=== PATIENT | female | born 1980 | race Caucasian/White ===

== ENCOUNTER 2022-12-10 09:06 | Outpatient (CLI) | payer OTHER, SELFPAY ==
--- NOTE | 2022-12-10 09:15 | US_ITS ---
WS: [id number] OBSTETRICAL ULTRASOUND COMPLETE HISTORY: dating and survey COMPARISON: None available. Single intrauterine gestation in Cephalic presentation. Cervix is Closed and normal length. Cervical length is 4.5 cm. Normal amount of amniotic fluid surrounds the fetus. Placenta: Anterior, no previa or abruption. Placenta ends 2 cm above the internal cervical os. Place nta grade 1 Heart: 144 BPM. Four chambers are identified. RIGHT and LEFT outflow tracts are unremarkable. Anatomy: Intracranial structures and spine are normal. kidneys, stomach and urinary bladd er are unremarkable. Abdominal wall, three-vessel cord and cord insertion site are normal. 4 extremities are present. profile: Limited by position. Gender: Female measurements: BPD = 5.5 cm = 22w6d; HC = 20.5 cm = 22w4d; AC = 17.7 cm = 22w4d; FL = 4.2 cm = 23w6d; EFW: 562 g. Not available. Biometry is internally concordant. AGA by ultrasound: 23w0d MANASA by ultrasound: 04/08/2023 IMPRESSION: 1. Single intrauterine gestation of 23w0d with an MANASA of 04/08/2023. 2. Poorly visualized profile and lips. Otherwise anatomy is negative.
== END 2022-12-10 09:07 | disposition home or self-care (01) ==
PROVIDERS: PCP Family Medicine; Visit Provider Family Medicine
DX: Z34.92 Encounter for supervision of normal pregnancy, unspecified, second trimester (principal)
CPT/HCPCS: 76805

== ENCOUNTER → 2022-12-18 10:57 | Outpatient (BNVA) | payer OTHER, SELFPAY | PROVIDERS: PCP Family Medicine; Visit Provider Nurse Practitioner Women's Health | DX: Z34.90 Encounter for supervision of normal pregnancy, unspecified, unspecified trimester (principal) | CPT/HCPCS: 80307; 82105; 84315; 84443; 85027; 86592; 86762; 86803; 86850; 86900; 87086; 87340; 87806 ==

== ENCOUNTER → 2022-12-24 14:28 | Outpatient (BNVA) | payer OTHER, SELFPAY | PROVIDERS: PCP Family Medicine; Visit Provider Obstetrics & Gynecology | DX: Z34.90 Encounter for supervision of normal pregnancy, unspecified, unspecified trimester (principal) | CPT/HCPCS: 76815; 84315 ==

== ENCOUNTER → 2023-01-19 08:02 | Outpatient (BNVA) | payer OTHER, SELFPAY | PROVIDERS: PCP Family Medicine; Visit Provider Obstetrics & Gynecology | DX: Z34.90 Encounter for supervision of normal pregnancy, unspecified, unspecified trimester (principal) | CPT/HCPCS: 82950; 84315; 85025 ==

== ENCOUNTER → 2023-03-16 14:04 | Outpatient (BNVA) | payer OTHER, SELFPAY | PROVIDERS: PCP Family Medicine; Visit Provider Obstetrics & Gynecology | DX: Z34.90 Encounter for supervision of normal pregnancy, unspecified, unspecified trimester (principal); Z3A.00 Weeks of gestation of pregnancy not specified | CPT/HCPCS: 84315; 87081 ==

== ENCOUNTER → 2023-03-23 09:59 | Day surgery (SDC) | payer OTHER, SELFPAY ==
--- NOTE | 2023-03-23 10:27 | P.ANESASSM_ITS ---
Pre-Anesthetic Assessment Height/Weight: Height 1.75 m Epidural Familial anesthetic complications: None Social No alcohol and No tobacco Hx of addiction abuse Exam alert, oriented x 3, clear to auscultation bilaterally and regular rate & rhythm Anesthetic Plan ASA status: 2 Anesthesia: Regional (specify below) Risk of > 500 ml blood loss (7ml/kg in children): Yes, adequate IV access and fluids planned Other Pertinent Information patient desires avoiding any narcotic/opioids due to history of narcotic addiction Medications/Allergies Home Medications Medication Instructions Recorded Confirmed Last Taken Type sertraline 25 mg tablet (Zoloft) 25 mg PO DAILY #30 tabs 10/30/22 03/23/23 Unknown Rx buprenorphine HCl 8 mg sublingual 4 mg sublingual DAILY 12/08/22 03/23/23 Unknown History tablet vitamin with calcium 1 tab PO DAILY #30 tabs 12/08/22 03/23/23 Unknown Rx no.72-iron 27 mg-folic acid 1 mg tablet ( Vitamins Plus Low Iron) Allergies Allergy/AdvReac Type Severity Reaction Status Date / Time No Known Allergies Allergy Verified 03/23/23 09:34 [facility] Anesthesia Medical History Depression Surgical History Hx of hernia repair Family History Other CAD (coronary artery disease) Denies family history of Colon cancer Ovarian cancer Diabetes Heart disease Breast cancer Hypertension Uterine cancer Thyroid disease Stroke Social History Smoking and tobacco/nicotine status: never used tobacco/nicotine Alcohol intake: never Substance/Drug Use: former Data Anesthesia Cardiac Studies: No Data to Display
== END ==
PROVIDERS: PCP Family Medicine; Visit Provider Obstetrics & Gynecology
DX: Z01.818 Encounter for other preprocedural examination (principal)
CPT/HCPCS: 81000

== ENCOUNTER 2023-04-02 07:59 | Inpatient (IN) | payer OTHER, SELFPAY ==
[2023-04-02] VITALS (83 sets, daily range): BP systolic 88–144; BP diastolic 52–79; PULSE 65–106; RESP 16; TEMP 36.3–36.4; O2SAT 99–100; BMI 25.2
--- OUTSIDE RECORDS SUMMARY | 2023-04-02 08:21 | XMS_ITS | Continuity of Care Document ---
Author Name Unknown Organization [facility] Address [address] [place] [address]- Care Team Providers Care Cocoa Butter Filter Operator Name Role Phone Gladys MONTANEZ, Harlan Salcido Primary Care Physician Encounter Ordoñez Financial Number [id number] Date(s): 02/27/23 - 02/27/23 [facility] [address] [place], [place] [address] Attending Physician: Juanito Levi MD Admitting Physician: Referring, DR Casarez Allergies, Adverse Reactions, Alerts No Known Allergies Assessment and Plan Future Appointments Appointment Date:03/10/2023 11:45:00 AM Scheduled Provider: Location:Reg Appointment Type:Ultrasound 60 Appointment Date:03/10/2023 01:30:00 PM Scheduled Provider: Location:Reg Appointment Type:New Patient Appointment Date:04/24/2023 11:40:00 AM Scheduled Provider:Josue Singh DO Location: Addictions Appointment Type:DIRECT MAIL CLERK Established Patient Medications buprenorphine 8 mg sublingual tablet 4 mg, = 0.5 tab, SL, Daily, 30 tab, 1, 1, [facility] #[id number], 68, Height (inches) (Clinical), 01/05/23 10:43:00 CDT, in Start Date: 02/27/23 Status: Ordered buprenorphine 8 mg sublingual tablet 8 mg, = 1 tab, SL, Daily, 30, 1 Start Date: 12/11/20 Status: Ordered buprenorphine 8 mg sublingual tablet 8 mg, = 1 tab, SL, Daily, 30 tab, 2, 2, [facility] #[id number], 68, Height (inches) (Clinical), 09/22/22 12:55:00 CDT, in Start Date: 09/22/22 Status: Ordered Pristiq 25 mg, By mouth, Daily, Refill(s) 0 Start Date: 06/30/22 Status: Ordered Suboxone 8 mg-2 mg sublingual film 1 EA, SL, Daily, 28 EA, 2, 2, Substitution Permitted Start Date: 08/20/20 Stop Date: 10/28/20 Status: Ordered Social History Social History Type Response Sex Female Patient Care team information Care Team Personnel Name: Gladys MONTANEZ, Harlan Salcido Position: 2 Restricted Providers Member Role: Primary Care Physician Address: Address: [address] [place] [address] Care Team Related Persons Name: JONATAN DELATORRE Name: MAX KAPADIA Address: home [address] [phone]
[2023-04-02 09:04] LABS: Basophils % 0.3 %; Eosinophils # 0.1 10^3/uL (0.0-0.8); Eosinophils % 0.8 %; Hematocrit 34.5 % (36-47); Lymphocytes # 0.7 10^3/uL (0.8-4.8); Lymphocytes % 11.6 %; Mean Corpuscular HGB Conc 34.5 g/dL (30-55); Mean Corpuscular Hemoglobin 30.3 pg (27-33); Mean Corpuscular Volume 87.8 fl (85-98); Mean Platelet Volume 10.9 fL (7.4-10.4); Monocytes # 0.7 10^3/uL (0.2-0.9); Monocytes % 11.9 %; Neutrophils # 4.54 10^3/uL (1.8-7.7); Neutrophils % 74.3 %; Nucleated Red Blood Cells % 0 %; Platelet Count 182 10^3/cmm (157-399); Red Blood Count 3.93 10^6/uL (3.85-5.65); Red Cell Distribution Width 12.5 % (12.1-15.1); White Blood Count 6.12 10^3/uL (3.29-11.43)
[2023-04-02] MEDS: dextrose 5%-lactated ringers 1,000 ML 125 ML IV ×2 (09:15→16:59)
[2023-04-02] MEDS: oxytocin 30 UNIT/500 ML BAG IV (09:15)
--- NOTE | 2023-04-02 09:35 | P.HP_ITS ---
Providers/Chief Complaint 2 Admitting Physician: Gennaro Hope MD Primary TURBINE MECHANIC: Gennaro Hope MD Primary Care Provider: Harlan Graham MD Chief Complaint: induction of labor HPI TURBINE MECHANIC History of Present Illness 42 y.o. EDC April 08, 2023 At 39 w 1 d Admitted for elective induction of labor No complications No c/o + active movements POBHx: x three, uncomplicated PMHx: h/o narcotic addiction, on buprenorphine 4 mg daily Depression PSHx: hernia Meds: buprenorphine 4 mg daily Sertraline 25 mg daily Present Details : 4 Para: 3 Labs Rubella: Immune RPR: Negative GBS: Negative Medications/Allergies Home Medications Medication Instructions Recorded Confirmed Last Taken Type sertraline 25 mg tablet (Zoloft) 25 mg PO DAILY #30 tabs 10/30/22 03/23/23 Unknown Rx buprenorphine HCl 8 mg sublingual 4 mg sublingual DAILY 12/08/22 03/30/23 04/02/23 05:45 History tablet vitamin with calcium 1 tab PO DAILY #30 tabs 12/08/22 03/30/23 04/02/23 05:45 Rx no.72-iron 27 mg-folic acid 1 mg tablet ( Vitamins Plus Low Iron) Allergies Allergy/AdvReac Type Severity Reaction Status Date / Time No Known Allergies Allergy Verified 03/30/23 14:12 PFSH TURBINE MECHANIC 2 PFSH: Medical History Depression Surgical History Hx of hernia repair Family History Other CAD (coronary artery disease) Denies family history of Colon cancer Ovarian cancer Diabetes Heart disease Breast cancer Hypertension Uterine cancer Thyroid disease Stroke History History History 2 4 Term 3 0 Miscarriages/Ectopic 0 Living Children 3 Care MANASA Calculator 2 Estimated Delivery Date Method Current WG Current Estimate 04/08/23 Manual 39w 3d Vitals/I&O/Wt Last Vital Signs Temp 98.0 F 04/04/23 17:13 Pulse 70 04/04/23 17:13 Resp 15 04/04/23 17:13 BP 117/70 04/04/23 17:13 Pulse Ox 98 04/04/23 17:13 O2 Del Method Room Air 04/04/23 04:25 Physical Exam 2 Narrative: Weight 176 lbs, 5?9? VS normal Comfortable, awake, alert Lungs: clear Cor: RRR Abd: soft, nontender FH 37 cm Cx: 2 / 50% / -3 / posterior / vertex Ext: no edema External monitor: heart tracing good variability, + accelerations Urinary Catheter Management: Delcid: Cath Placed During This Visit: yes, but has since been removed by the nurse Reason for Continuing Indwelling Catheter: Other Urinary Catheter Date of Insertion: 04/02/23 Urinary Catheter Time of Insertion: 20:20 Date Urinary Catheter Removed: 04/03/23 Time Urinary Catheter Discontinued: 08:20 Data 04/04/23 01:45 Results Labs OB ([facility]): 2 Obstetrics US 12/24/22 Blood Type O Positive 04/02/23 Antibody Screen Negative 04/02/23 Hct 30.8 % (36-47) L 04/04/23 Hgb 10.60 g/dL (11.27-16.99) L 04/04/23 Rho(D) Type Rh positive 04/02/23 Plt Count 184 10^3/cmm (157-399) 04/04/23 Hep Bs Antigen Non-reactive (Nonreactive) 12/18/22 Hepatitis C Antibody Non-reactive (Nonreactive) 12/18/22 Rubella IgG Antibody 35.2 IU/mL (0.0-10.0) H 12/18/22 RPR Nonreactive (Nonreactive) 12/18/22 HIV 1&2 Ab & HIV 1 Ag Non-reactive (Non-Reactiv) 12/18/22 TSH 2.12 uIU/mL (0.27-4.20) 12/18/22 Cystic Fibrosis Screen Negative 12/18/22 Glucose 1 Hr 50 gm 85 mg/dL (85-140) 01/19/23 Urine Opiates Screen Negative ng/mL (Negative) 12/18/22 Ur Barbiturates Screen Negative ng/mL (Negative) 12/18/22 Ur Phencyclidine Scrn Negative ng/mL (Negative) 12/18/22 Ur Amphetamines Screen Negative ng/mL (Negative) 12/18/22 U Benzodiazepines Scrn Negative ng/mL (Negative) 12/18/22 Urine Cocaine Screen Negative ng/mL (Negative) 12/18/22 U Marijuana (THC) Screen Negative ng/mL (Negative) 12/18/22 Micro Urine Specimen 12/18/22 A&P Assessment and plan (1) : 39 w 1 d Admit for elective induction of labor Plan start pitocin (2) History of narcotic addiction: h/o opioid use disorder continue buphrenorphine Attestations 2 Medical Necessity Statement*: patient at 39 w 1 d gestation, admitted for elective labor induction Coding Level of Care Code Acute Code for Chg Fwd Diagnoses Z34.90 History of narcotic addiction F11.21 Time Spent (min) 20
--- NOTE | 2023-04-02 13:50 | P.PN_ITS ---
STAFF ANESTHESIOLOGIST Subjective 2 Subjective: Interval history: April 02, 2023, 1350 Fetus reassuring Pitocin at 20 mU Cx: 2 cm / Continue Pitocin Labor: Station: -1 Amniotic Membrane Status: Intact Monitor Mode: External Contraction Pattern: Regular Vitals/I&O/Wt Last Vital Signs Temp 98.0 F 04/04/23 17:13 Pulse 70 04/04/23 17:13 Resp 15 04/04/23 17:13 BP 117/70 04/04/23 17:13 Pulse Ox 98 04/04/23 17:13 O2 Del Method Room Air 04/04/23 04:25 Physical Exam 2 Urinary Catheter Management: Delcid: Cath Placed During This Visit: yes, but has since been removed by the nurse Reason for Continuing Indwelling Catheter: Other Urinary Catheter Date of Insertion: 04/02/23 Urinary Catheter Time of Insertion: 20:20 Date Urinary Catheter Removed: 04/03/23 Time Urinary Catheter Discontinued: 08:20 Data 04/04/23 01:45 Attestations 2 Medical Necessity Statement*: patient at 39 w 1 d, admitted for labor induction Coding Level of Care Code Acute Code for Chg Fwd Time Spent (min) 20
[2023-04-02] MEDS: lactated ringers 1,000 ML 999 ML IV ×2 (19:30→20:40)
[2023-04-02] MEDS: ROPivacaine syringe 100 MG/50 ML SYRINGE 10 MG EPIDURAL ×2 (19:45→23:28)
--- NOTE | 2023-04-02 19:48 | P.ANESASSM_ITS ---
Pre-Anesthetic Assessment Height/Weight: Height 1.75 m Weight 77.564 kg Temp Pulse Resp BP Pulse Ox O2 Del Method 97.3 F L 89 16 138/63 100 Room Air 04/02/23 19:43 04/02/23 19:41 04/02/23 08:26 04/02/23 19:39 04/02/23 19:41 04/02/23 08:00 Familial anesthetic complications: none Was Beta Reena taken within 24 hours: N/A Was Clonidine taken within 24 hours: N/A Social No alcohol and No tobacco Exam alert, oriented x 3, clear to auscultation bilaterally and regular rate & rhythm Airway Submandibular: within normal limits Cervical ROM: within normal limits Mallampati: Class II Dentition: full Neuropsych Anxiety and Depression Anesthetic Plan ASA status: 2 Anesthesia: Regional (specify below) (Labor epidural) Medications/Allergies Home Medications Medication Instructions Recorded Confirmed Last Taken Type sertraline 25 mg tablet (Zoloft) 25 mg PO DAILY #30 tabs 10/30/22 03/23/23 Unknown Rx buprenorphine HCl 8 mg sublingual 4 mg sublingual DAILY 12/08/22 03/30/23 04/02/23 05:45 History tablet vitamin with calcium 1 tab PO DAILY #30 tabs 12/08/22 03/30/23 04/02/23 05:45 Rx no.72-iron 27 mg-folic acid 1 mg tablet ( Vitamins Plus Low Iron) Allergies Allergy/AdvReac Type Severity Reaction Status Date / Time No Known Allergies Allergy Verified 03/30/23 14:12 Current Medications Generic Name Dose Route Start Last Admin Trade Name Mikhail PRN Reason Stop Dose Admin Dextrose/Lactated Ringer's 1,000 mls @ 125 mls/hr 04/02/23 08:30 04/02/23 16:59 Dextrose 5%-Lactated Ringers IV 125 mls/hr .Q8H AMRYANNE Administration Oxytocin 30 unit in 500 mls @ 1 mls/hr 04/02/23 09:00 04/02/23 13:45 Pitocin IV 20 milliunit/min .Q24H MARYANNE 20 mls/hr Titration Protocol 1 MILLIUNIT/MIN PFSH Anesthesia Medical History Depression Surgical History Hx of hernia repair Family History Other CAD (coronary artery disease) Denies family history of Colon cancer Ovarian cancer Diabetes Heart disease Breast cancer Hypertension Uterine cancer Thyroid disease Stroke Female Reproductive History : 4 Data Anesthesia 04/02/23 08:30 Short CBC 04/02/23 Range/Units 08:30 WBC 6.12 (3.29-11.43) 10^3/uL Hgb 11.90 (11.27-16.99) g/dL Hct 34.5 L (36-47) % MCV 87.8 (85-98) fl Plt Count 182 (157-399) 10^3/cmm Neut % (Auto) 74.3 % Neut # (Auto) 4.54 (1.8-7.7) 10^3/uL Blood Bank 04/02/23 10:38 Blood Type O Positive Rho(D) Type Rh positive Antibody Screen Negative Cardiac Studies: 2 No Data to Display Anesthesia Procedures Epidural Time Out Performed: Yes Consents Signed: Procedure Consent Consent: requested by attending/covering physician, from patient, risks and benefits reviewed and patient agrees to proceed Lumbar Level: L3-L4 Epidural position: sitting Epidural procedure: sterile prep of area, 1% lidocaine to numb the area, 18 g needle, neg for paresthesia, test dose given, placed PCEA, no systemic response, sterile dressing applied and 0.2% Ropiavacaine @ mls/hr (10) Additional Comments: FRANDY at 4cm, cath at 9cm, 3mls of 2% lido PF bolused
--- NOTE | 2023-04-02 21:25 | P.PN_ITS ---
REMOVABLE PROSTHODONTIST Subjective 2 Subjective: Interval history: April 02, 2023, 2124 Fetus reassuring Patient comfortable with epidural Pitocin at 20 mU Cx: 2 cm / 50% / -2 / posterior AROM, clear fluid Labor: Station: -1 Amniotic Membrane Status: Intact Monitor Mode: External Contraction Pattern: Regular Vitals/I&O/Wt Last Vital Signs Temp 98.0 F 04/04/23 17:13 Pulse 70 04/04/23 17:13 Resp 15 04/04/23 17:13 BP 117/70 04/04/23 17:13 Pulse Ox 98 04/04/23 17:13 O2 Del Method Room Air 04/04/23 04:25 Physical Exam 2 Urinary Catheter Management: Delcid: Cath Placed During This Visit: yes, but has since been removed by the nurse Reason for Continuing Indwelling Catheter: Other Urinary Catheter Date of Insertion: 04/02/23 Urinary Catheter Time of Insertion: 20:20 Date Urinary Catheter Removed: 04/03/23 Time Urinary Catheter Discontinued: 08:20 Data 04/04/23 01:45 Attestations 2 Medical Necessity Statement*: patient at 39 w 1 d, admitted for labor induction Coding Level of Care Code Acute Code for Chg Fwd Time Spent (min) 20
[2023-04-03] VITALS (55 sets, daily range): BP systolic 82–134; BP diastolic 48–76; PULSE 59–105; RESP 16–18; TEMP 36–36.9; O2SAT 97
[2023-04-03] MEDS: dextrose 5%-lactated ringers 1,000 ML 125 ML IV ×2 (03:27→10:41)
[2023-04-03] MEDS: ROPivacaine syringe 100 MG/50 ML SYRINGE 10 MG EPIDURAL (04:21)
--- NOTE | 2023-04-03 08:35 | PM.DELIVERY ---
Delivery Note: Date of delivery: April 03, 2023 Pre-delivery diagnoses: 39 w 1 d labor induction Post-delivery diagnoses: 39 w 1 d labor induction with pitocin vaginal delivery repair of second-degree perineal laceration Procedure: vaginal delivery repair of second-degree perineal laceration Op report anesthesia: Epidural Delivering Physician: Gennaro Hope MD Estimated blood loss (mL): 300 Findings: , vigorous female infant Cord gases and blood obtained Normal placenta and cord No episiotomy Second-degree perineal laceration repaired EBL: 300 cc No complications Pre-Delivery Course: normal labor course fetus was reassuring throughout Delivery: vaginal Post-Delivery Status: good History History History 4 Term 3 0 Miscarriages/Ectopic 0 Living Children 3 A&P Assessment and plan (1) Vaginal delivery: plan care (2) Second degree perineal laceration: repaired (3) History of narcotic addiction: continue buprenorphine Coding Level of Care Code Acute Code for Chg Fwd Diagnoses Vaginal delivery O80 Second degree perineal laceration O70.1 History of narcotic addiction F11.21 Time Spent (min) 60
--- NOTE | 2023-04-03 08:35 | P.PN_ITS ---
BANK COURIER Subjective 2 Subjective: Interval history: April 03, 2023, 0835 DELIVERY NOTE , vigorous female infant Cord gases and blood obtained Normal placenta and cord No episiotomy Second-degree perineal laceration repaired EBL: 300 cc No complications Labor: Station: -1 Amniotic Membrane Status: Intact Monitor Mode: External Contraction Pattern: Regular Vitals/I&O/Wt Last Vital Signs Temp 98.0 F 04/04/23 17:13 Pulse 70 04/04/23 17:13 Resp 15 04/04/23 17:13 BP 117/70 04/04/23 17:13 Pulse Ox 98 04/04/23 17:13 O2 Del Method Room Air 04/04/23 04:25 Physical Exam 2 Urinary Catheter Management: Delcid: Cath Placed During This Visit: yes, but has since been removed by the nurse Reason for Continuing Indwelling Catheter: Other Urinary Catheter Date of Insertion: 04/02/23 Urinary Catheter Time of Insertion: 20:20 Date Urinary Catheter Removed: 04/03/23 Time Urinary Catheter Discontinued: 08:20 Data 04/04/23 01:45 Attestations 2 Medical Necessity Statement*: patient at 39 + weeks gestation, admitted for labor induction; now s/p vaginal delivery Coding Level of Care Code Acute Code for Chg Fwd Time Spent (min) 60
[2023-04-03] MEDS: oxytocin 30 UNIT/500 ML BAG 999 UNIT IV (09:50)
[2023-04-03] MEDS: oxytocin 30 UNIT/500 ML BAG 20 UNIT IV (09:58)
--- NOTE | 2023-04-03 14:16 | ANE.PACU2 ---
Inpatient post-anesthesia follow up: Airway intact: Yes Vital signs: Temperature 96.8 F Pulse Rate 86 Respiratory Rate 18 Blood Pressure 134/61 Pulse Oximetry 100 Oxygen Delivery Me thod Room Air Oxygen Flow Rate Fraction of Inspir ed Oxygen Hydration adequate: Yes Nausea and vomiting: No Pain level: 2 Mental status: Baseline Additional Comments: Anes Start 04/02/231919 Anes End 04/03/23 0764
--- NOTE | 2023-04-03 15:01 | PC.NURSE ---
PATIENT HAS BEEN IN NURSERY HOLDING AND SNUGGLING BABY.
--- NOTE | 2023-04-03 15:02 | PC.NURSE ---
PT REMAINS IN NURSERY HOLDING BABY
[2023-04-03] MEDS: ibuprofen 800 mg tablet PO ×2 (15:58→20:12)
[2023-04-03] MEDS: docusate sodium 100 mg Capsule PO (20:13)
[2023-04-04 02:42] LABS: Hematocrit 30.8 % (36-47); Mean Corpuscular HGB Conc 34.4 g/dL (30-55); Mean Corpuscular Hemoglobin 30.5 pg (27-33); Mean Corpuscular Volume 88.8 fl (85-98); Mean Platelet Volume 11.3 fL (7.4-10.4); Platelet Count 184 10^3/cmm (157-399); Red Blood Count 3.47 10^6/uL (3.85-5.65); Red Cell Distribution Width 12.6 % (12.1-15.1); White Blood Count 8.32 10^3/uL (3.29-11.43)
[2023-04-04 04:25] VITALS: BP 110/69; PULSE 83; RESP 16; TEMP 36.8; O2SAT 97
[2023-04-04] MEDS: ibuprofen 800 mg tablet PO ×2 (08:05→16:15)
[2023-04-04] MEDS: docusate sodium 100 mg Capsule PO (08:06)
[2023-04-04] MEDS: prenatal vitamin Capsule 1 CAP PO (08:06)
--- NOTE | 2023-04-04 12:40 | PM.OBGYPN ---
MAINTENANCE DEPARTMENT TECHNICIAN Subjective Subjective: Interval history: no c/o no bleeding, pain eating, voiding, ambulating well caring for without any problems Labor: Station: -1 Amniotic Membrane Status: Intact Monitor Mode: External Contraction Pattern: Regular Vitals/I&O/Wt Last Vital Signs Temp 98.0 F 04/04/23 17:13 Pulse 70 04/04/23 17:13 Resp 15 04/04/23 17:13 BP 117/70 04/04/23 17:13 Pulse Ox 98 04/04/23 17:13 O2 Del Method Room Air 04/04/23 04:25 Physical Exam Narrative: afebrile, VS normal comfortable, awake, alert Abd: soft, nontender. fundus firm Ext: no edema; nontender Urinary Catheter Management: Delcid: Cath Placed During This Visit: yes, but has since been removed by the nurse Reason for Continuing Indwelling Catheter: Other Urinary Catheter Date of Insertion: 04/02/23 Urinary Catheter Time of Insertion: 20:20 Date Urinary Catheter Removed: 04/03/23 Time Urinary Catheter Discontinued: 08:20 Data 04/04/23 01:45 A&P Assessment and plan (1) Vaginal delivery: PPD #1 , repair of second-degree perineal laceration doing well discharge home today instructions and precautions given call/return if fever, chills, headache, blurry vision, nausea, vomiting, abdominal pain; vaginal bleeding or discharge; shortness of breath, chest pain, leg pains or swelling; inability to void, perineal pain or swelling; feelings of depression or mood changes; thoughts of suicide or harming others; inability to care for baby. f/u in 6 weeks or PRN (2) Second degree perineal laceration: (3) History of narcotic addiction: continue buprenorphine Attestations Medical Necessity Statement*: patient s/p vaginal delivery, plan discharge home today Coding Level of Care Code Acute Code for Chg Fwd Diagnoses Vaginal delivery O80 Second degree perineal laceration O70.1 History of narcotic addiction F11.21 Time Spent (min) 20
--- NOTE | 2023-04-04 12:40 | PM.OBGYDC ---
Discharge Providers CASH SHORTAGE INVESTIGATOR Date of Admission: 04/02/23 07:59 Date of Discharge: 04/04/23 Attending Provider at Admission: Gennaro Hope MD Attending Provider at Discharge: Gennaro Hope MD Consults: none Primary CASH SHORTAGE INVESTIGATOR: Gennaro Hope MD Primary Care Provider: Harlan Graham MD Diagnoses at Discharge Discharge Diagnosis (1) Vaginal delivery: Details from hospital stay: patient admitted for labor induction pitocin was given normal labor course vaginal delivery with repair of second-degree perineal laceration no complications Status: Acute (2) Second degree perineal laceration: Status: Acute (3) History of narcotic addiction: Details from hospital stay: continue buprenorphine Status: Acute Reason for Visit Reason for Visit: induction of labor Brief History: 42 y.o. admitted for labor induction at 39+ weeks no complications Hospital Course Hospital Course pitocin induction was given progressed to complete had vaginal delivery with repair of second-degree perineal laceration no complications Information Peripartum Data: Infant Delivery Method: Vaginal Laceration description: Perineal - 2nd Degree Episiotomy description: None complications: none Physical Exam Narrative: afebrile, VS normal comfortable, awake, alert Abd: soft, nontender. fundus firm Ext: no edema; nontender Urinary Catheter Management: Delcid: Cath Placed During This Visit: yes, but has since been removed by the nurse Reason for Continuing Indwelling Catheter: Other Urinary Catheter Date of Insertion: 04/02/23 Urinary Catheter Time of Insertion: 20:20 Date Urinary Catheter Removed: 04/03/23 Time Urinary Catheter Discontinued: 08:20 History History History 4 Term 3 0 Miscarriages/Ectopic 0 Living Children 3 Discharge Data Studies Completed and Pending Laboratory Results WBC 8.32 10^3/uL (3.29-11.43) 04/04/23 01:45 RBC 3.47 10^6/uL (3.85-5.65) L 04/04/23 01:45 Hgb 10.60 g/dL (11.27-16.99) L 04/04/23 01:45 Hct 30.8 % (36-47) L 04/04/23 01:45 MCV 88.8 fl (85-98) 04/04/23 01:45 MCH 30.5 pg (27-33) 04/04/23 01:45 MCHC 34.4 g/dL (30-55) 04/04/23 01:45 RDW 12.6 % (12.1-15.1) 04/04/23 01:45 Plt Count 184 10^3/cmm (157-399) 04/04/23 01:45 MPV 11.3 fL (7.4-10.4) H 04/04/23 01:45 Neut % (Auto) 74.3 % 04/02/23 08:30 Lymph % (Auto) 11.6 % 04/02/23 08:30 Kings % (Auto) 11.9 % 04/02/23 08:30 Eos % (Auto) 0.8 % 04/02/23 08:30 Baso % (Auto) 0.3 % 04/02/23 08:30 Neut # (Auto) 4.54 10^3/uL (1.8-7.7) 04/02/23 08:30 Lymph # (Auto) 0.7 10^3/uL (0.8-4.8) L 04/02/23 08:30 Kings # (Auto) 0.7 10^3/uL (0.2-0.9) 04/02/23 08:30 Eos # (Auto) 0.1 10^3/uL (0.0-0.8) 04/02/23 08:30 Baso # (Auto) 0.0 10^3/uL (0.0-0.1) 04/02/23 08:30 Nucleated RBC % (auto) 0 % 04/02/23 08:30 Nucleated RBCs # 0.0 /100WBC 04/02/23 08:30 Blood Type O Positive 04/02/23 10:38 Rho(D) Type Rh positive 04/02/23 10:38 Antibody Screen Negative 04/02/23 10:38 Procedures Performed labor induction vaginal delivery repair of second-degree perineal laceration Vitals Last Vital Signs Temp 98.0 F 04/04/23 17:13 Pulse 70 04/04/23 17:13 Resp 15 04/04/23 17:13 BP 117/70 04/04/23 17:13 Pulse Ox 98 04/04/23 17:13 O2 Del Method Room Air 04/04/23 04:25 Results Labs OB ([facility]): Obstetrics US 12/24/22 Blood Type O Positive 04/02/23 Antibody Screen Negative 04/02/23 Hct 30.8 % (36-47) L 04/04/23 Hgb 10.60 g/dL (11.27-16.99) L 04/04/23 Rho(D) Type Rh positive 04/02/23 Plt Count 184 10^3/cmm (157-399) 04/04/23 Hep Bs Antigen Non-reactive (Nonreactive) 12/18/22 Hepatitis C Antibody Non-reactive (Nonreactive) 12/18/22 Rubella IgG Antibody 35.2 IU/mL (0.0-10.0) H 12/18/22 RPR Nonreactive (Nonreactive) 12/18/22 HIV 1&2 Ab & HIV 1 Ag Non-reactive (Non-Reactiv) 12/18/22 TSH 2.12 uIU/mL (0.27-4.20) 12/18/22 Cystic Fibrosis Screen Negative 12/18/22 Glucose 1 Hr 50 gm 85 mg/dL (85-140) 01/19/23 Urine Opiates Screen Negative ng/mL (Negative) 12/18/22 Ur Barbiturates Screen Negative ng/mL (Negative) 12/18/22 Ur Phencyclidine Scrn Negative ng/mL (Negative) 12/18/22 Ur Amphetamines Screen Negative ng/mL (Negative) 12/18/22 U Benzodiazepines Scrn Negative ng/mL (Negative) 12/18/22 Urine Cocaine Screen Negative ng/mL (Negative) 12/18/22 U Marijuana (THC) Screen Negative ng/mL (Negative) 12/18/22 Micro Urine Specimen 12/18/22 Discharge Plan Discharge Patient Disposition: Home Condition: Stable Prescriptions: Continued sertraline [Zoloft] 25 mg tablet 25 mg PO DAILY Qty: 30 11RF Hold Instructions: Home Medication placed on hold at Doctor's office Rx Instructions: was given script but is not and has not taken it buprenorphine HCl 8 mg tablet, sublingual 4 mg sublingual DAILY Vitamin Plus Low Iron 27 mg iron- 1 mg tablet 1 tab PO DAILY Qty: 30 11RF Discharge Orders: Discharge Order (Routine); Ordered 04/04/23 Ordered By: Gennaro Hope Discharge Diet: Usual diet Discharge Activity: Increase activity as tolerated Patient Instructions: Depression (DC), Bleeding (DC), Preeclampsia and Eclampsia After Delivery (GEN), OB Care at Home, Opioid Safety, Abnormal Bleeding Discharge Attestations CASH SHORTAGE INVESTIGATOR Time Spent in Discharge Care*: less than 30 min Coding Level of Care Code Acute Code for Chg Fwd Diagnoses Vaginal delivery O80 Second degree perineal laceration O70.1 History of narcotic addiction F11.21 Time Spent (min) 20
[2023-04-04 17:13] VITALS: BP 117/70; PULSE 70; RESP 15; TEMP 36.7; O2SAT 98
== END 2023-04-04 17:14 | disposition home or self-care (01) | DRG 806 ==
PROVIDERS: Admitting Provider Obstetrics & Gynecology; PCP Family Medicine; Visit Provider Obstetrics & Gynecology
DX: O99.344 Other mental disorders complicating childbirth (principal); O99.324 Drug use complicating childbirth; Z37.0 Single live birth; Z3A.39 39 weeks gestation of pregnancy; F32.A Depression, unspecified; F41.9 Anxiety disorder, unspecified; F11.21 Opioid dependence, in remission; O70.1 Second degree perineal laceration during delivery
CPT/HCPCS: 36415; 51702; 59025; 59409; 85025; 85027; 86850; 86900; 99211; J2590; J2795; J7120; J7121